=== PATIENT | female | born 1945 | race Caucasian/White ===

== ENCOUNTER 2018-10-17 09:09 | Day surgery (SDC) | payer MEDICARE, BC ==
[~2018-10-17] VITALS: Ht 157.5 cm; Wt 48.8 kg
[~2018-10-17 09:09] MED LIST: CHOLESTEROL MED; ESOM20CA PO; FLEXERIL; HYDR-3024 PO; JANUVIA; RANI-513 PO; REGLAN PO; ZANTAC
[2018-10-17 10:32] VITALS: Ht 157.5 cm; Wt 48.8 kg
--- NOTE | 2018-10-17 11:03 | PREAC ---
Date/Time of Note Date/Time of Note DATE: 10/17/18 TIME: 11:02 Anesthesia Eval and Record Evaluation Time Pre-Procedure Interview DATE: 10/17/18 TIME: 11:02 Age 72 Sex female NPO: 8 hrs Preoperative diagnosis gerd Planned procedure egd, colonoscopy Past Medical History Past Medical History: Includes Cardio: Dyslipidemia Endo: Diabetes GI: GERD Surgery & Anesthesia Issues No known issue Meds Anticoagulation: No Beta Sejal within 24 hr: No Reason Beta Sejal not given: Pt. not on B-Sejal Reported Medications [Flexeril] No Conflict Check 10/17/18 [Zantac] No Conflict Check 10/17/18 [Januvia] No Conflict Check 10/17/18 Hydrocodone Bit-Acetaminophen* (Vicodin*) 5-300 Tab, 1 EACH PO Q4H PRN for PAIN, TAB 08/03/14 Ranitidine Hcl* (Ranitidine Hcl*) Unknown Strength Tablet, PO DAILY, TAB 08/03/14 Esomeprazole Mag Trihydrate (Nexium) Unknown Strength Capsule.dr, PO DAILY, CAP 08/03/14 Discontinued Reported Medications [Cholesterol Med] No Conflict Check 11/11/15 [Reglan] No Conflict Check, PO 11/11/15 Meds reviewed: Yes Allergies Coded Allergies: No Known Drug Allergies (Verified Allergy, Unknown, 10/17/18) Allergies Reviewed: Yes Labs/Studies Labs Reviewed: Reviewed by anesthesiologist test: N/A Pre-procedure Exam Airway: Adequate mouth opening, Adequate thyromental dist Mallampati: Mallampati II Teeth: Normal Lung: Normal Heart: Normal ASA Physical Status ASA physical status: 2 Emergency: None Planned Anesthetic General/MAC: Mask Pre-operative Attestations Prior to commencing anesthesia and surgery, the patient was re-evaluated, there was verification of: *The patient's identity *The results of appropriate recent lab work and preoperative vital signs *The above evaluation not changing prior to induction *Anesthetic plan, risk benefits, alternative and complications discussed with patient/family; questions answered; patient/family understands, accepts and wishes to proceed. ERIKA WOOD Oct 17, 2018 11:03
[2018-10-17] MEDS ORDERED: GLYCOPYRROLATE 0.4 MG INJ ONE (11:06)
[2018-10-17] MEDS ORDERED: PROPOFOL 40 ML ONE (11:07)
[2018-10-17 11:16] VITALS: BP 118/55; PULSE 79; RESP 16
[2018-10-17 12:14] VITALS: BP 161/60; PULSE 72; RESP 15
--- NOTE | 2018-10-18 13:32 | PAC ---
Date/Time of Note Date/Time of Note DATE: 10/18/18 TIME: 13:32 Post-Anesthesia Notes Post-Anesthesia Note Last documented vital signs Vital Signs Date Temp Pulse Resp B/P (MAP) Pulse Ox O2 O2 Flow FiO2 Time Delivery Rate 10/17/18 72 15 161/60 97 Room Air 12:14 (93) 10/17/18 98.2 11:16 Activity: WNL Respiratory function: WNL Cardiovascular function: WNL Mental status: Baseline Pain reasonably controlled: Yes Hydration appropriate: Yes Nausea/Vomiting absent: Yes ERIKA WOOD Oct 18, 2018 13:32
== END 2018-10-17 12:34 | disposition home or self-care (01) ==
LOC: GIL 09:09
PROVIDERS: ATTEND Internal Medicine Gastroenterology
DX: R19.4 Change in bowel habit (principal); K57.30 Diverticulosis of large intestine without perforation or abscess without bleeding; K64.8 Other hemorrhoids; K21.9 Gastro-esophageal reflux disease without esophagitis; K29.50 Unspecified chronic gastritis without bleeding; E11.9 Type 2 diabetes mellitus without complications; E78.5 Hyperlipidemia, unspecified
CPT/HCPCS: 82962; 88305; 88312